=== PATIENT | male | born 1985 | race Hispanic/Latino ===

== ENCOUNTER 2021-03-10 12:19 | Emergency (ER) | payer OTHER ==
[~2021-03-10] VITALS: Ht 167.6 cm; Wt 81.0 kg
[2021-03-10] MEDS ORDERED: KEFLEX500 MG PO (12:57)
[2021-03-10 13:37] VITALS: BP 149/80
== END 2021-03-10 13:40 | disposition home or self-care (01) | DRG 605 ==
LOC: ED 12:19
PROC: 0HQKXZZ Repair Right Lower Leg Skin, External Approach (ICD-10-PCS; principal; 2021-03-10)
DX: S81.811A Laceration without foreign body, right lower leg, initial encounter (principal); W22.8XXA Striking against or struck by other objects, initial encounter; Y92.89 Other specified places as the place of occurrence of the external cause; Y99.0 Civilian activity done for income or pay

== ENCOUNTER 2021-03-22 11:22 | Emergency (ER) | payer OTHER ==
[~2021-03-22] VITALS: Ht 167.6 cm; Wt 79.5 kg
[~2021-03-22 11:22] MED LIST: KEFLEX500 MG PO
[2021-03-22 11:49] VITALS: BP 138/86
== END 2021-03-22 11:58 | disposition home or self-care (01) | DRG 950 ==
LOC: ED 11:22
DX: S81.811D Laceration without foreign body, right lower leg, subsequent encounter (principal); X58.XXXD Exposure to other specified factors, subsequent encounter

== ENCOUNTER 2021-12-18 19:10 | Emergency (ER) | payer OTHER ==
[~2021-12-18] VITALS: Ht 177.8 cm; Wt 81.0 kg
[2021-12-18] MEDS ORDERED: BACTRIM DS1 TAB PO (20:54)
[2021-12-18 20:58] VITALS: BP 137/82
== END 2021-12-18 21:09 | disposition home or self-care (01) | DRG 914 ==
LOC: ED 19:10
DX: S81.042A Puncture wound with foreign body, left knee, initial encounter (principal); W26.8XXA Contact with other sharp object(s), not elsewhere classified, initial encounter; Y93.89 Activity, other specified; Y92.009 Unspecified place in unspecified non-institutional (private) residence as the place of occurrence of the external cause